=== PATIENT | male | born 1985 | race Caucasian/White ===

== ENCOUNTER 2019-06-06 17:00 | Emergency (ER) | payer OTHER ==
[~2019-06-06] VITALS: Ht 180.3 cm; Wt 110.2 kg
[2019-06-06 17:04] VITALS: BP 128/79; Ht 180.3 cm; Wt 110.2 kg
== END 2019-06-06 17:36 | disposition home or self-care (01) ==
LOC: ED 17:00
DX: J40 Bronchitis, not specified as acute or chronic (principal)
CPT/HCPCS: J1100